=== PATIENT | female | born 1940 | race Caucasian/White ===

== ENCOUNTER → 2024-09-16 12:42 | Outpatient (CLI) | payer MEDICARE, SELFPAY ==
[2024-09-16 13:17] LABS: Add Manual Diff / Slide Review NO; Basophils Absolute Auto 100 /uL (0-100); Basophils Percent Auto 0.9 % (0-2); Eosinophils Absolute Auto 100 /uL (0-450); Eosinophils Percent Auto 1.9 % (2-4); Hematocrit 43.1 % (36-46); Hemoglobin 14.5 g/dL (12.0-16.0); Lymphocytes Absolute Auto 1700 /uL (1100-4500); Lymphocytes Percent Auto 25.2 % (25-40); Mean Corpuscular HGB Conc 33.7 % (30-36); Mean Corpuscular Hemoglobin 31.3 PG (26-34); Mean Corpuscular Volume 92.8 fL (80-100); Monocytes Absolute Auto 500 /uL (0-900); Monocytes Percent Auto 6.7 % (3-14); Neutrophils Absolute Auto 4500 /uL (1500-7000); Neutrophils Percent Auto 65.3 % (50-75); Platelet Count 202 X10^3/uL (150-400); Red Blood Cell Count 4.64 X10^6/uL (4.0-5.2); Red Cell Distribution Width 13.7 % (11.6-14.8); White Blood Cell Count 6.9 X10^3/uL (4.5-11.0)
[2024-09-16 13:45] LABS: BUN Creatinine Ratio 21.6 (6-22); Blood Urea Nitrogen 11 mg/dL (7-17); Calcium 9.5 mg/dL (8.4-10.2); Carbon Dioxide 30 mmol/L (22-32); Chloride 96 mmol/L (98-107); Estimated Glomerular Filt Rate > 60 mL/min (>60); Glucose 103 mg/dL (70-99); HEMOLYSIS < 15 (0-50); Sodium 134 mmol/L (137-145)
--- NOTE | 2024-09-16 14:41 | EKG_ITS ---
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
[2024-09-16 16:21] LABS: Appearance Urine UA CLEAR; Bilirubin Urine UA NEGATIVE (NEGATIVE); Color Urine UA YELLOW; Glucose Urine UA NEGATIVE (Negative); Ketones Urine UA TRACE (NEGATIVE); Leukocyte Esterase Urine UA NEGATIVE (NEGATIVE); Nitrite Urine UA NEGATIVE (Negative); Occult Blood Urine UA NEGATIVE (Negative); Protein Urine UA 1+ (Negative); Specific Gravity Urine UA 1.015 (1.000-1.035); Urobilinogen Urine UA 0.2 E.U./dL (0.2)
[2024-09-16 16:27] LABS: Bacteria Urine Moderate (10-30); RBC Urine None Seen (0-5/HPF); Squamous Epithelial Cell Urine 1-5 /HPF (0-5/HPF); Urine Volume 10mL (spun); WBC Urine 0-1/HPF (0-5/HPF)
[2024-09-16 16:28] LABS: Culture Indicated Urine Cult Not Indicated; Mucus Urine 2+ (Negative)
== END ==
PROVIDERS: PCP Registered Nurse; Referring Provider Orthopaedic Surgery; Visit Provider Orthopaedic Surgery
DX: Z01.818 Encounter for other preprocedural examination (principal); R73.9 Hyperglycemia, unspecified; Z01.812 Encounter for preprocedural laboratory examination; N39.0 Urinary tract infection, site not specified
CPT/HCPCS: 36415; 80048; 81001; 83036; 85025; 93005; 93010

== ENCOUNTER 2024-12-02 12:14 | Day surgery (SDC) | payer MEDICARE, SELFPAY ==
[2024-12-01 09:31] VITALS: BMI 21.7
[2024-12-02] VITALS (10 sets, daily range): BP systolic 127–185; BP diastolic 65–91; PULSE 61–65; RESP 14–20; TEMP 35.7–36.4; O2SAT 92–96; BMI 21.7
--- NOTE | 2024-12-02 06:00 | DI.RAD.S_ITS ---
PROCEDURE: XR HIP W PEL IF DONE RT 2V INDICATIONS: DILCIA TECHNIQUE: AP pelvis and lateral view of the hip acquired. COMPARISON: None. FINDINGS: Bones: Patient is status post right hip arthroplasty, with hardware components in expected positions. The hip joint appears congruent. The visualized bony structures appear intact. Soft tissues: Overlying postoperative changes are noted. No suspicious soft tissue densities. IMPRESSION: Expected post-operative appearance of a hip arthroplasty. Dictated by: Best Bates M.D. on 12/03/2024 at 15:14 Approved by: Best Bates M.D. on 12/03/2024 at 15:14
[2024-12-02] MEDS: LACTATED RINGERS 1,000 ML 42 ML IV (13:09)
[2024-12-02] MEDS: ACETAMINOPHEN 325 MG TABLET 975 MG PO (13:09)
[2024-12-02] MEDS: CELECOXIB 200 MG CAPSULE PO (13:10)
[2024-12-02] MEDS: VANCOMYCIN 1,000 MG in SODIUM CHLORIDE 0.9% 250 ML 250 MG IV (13:41)
--- NOTE | 2024-12-02 14:19 | PM.PREOP ---
Pre-operative Note Interval Note History & Physical reviewed/Exam performed by Physician: Yes Changes to H&P: No
--- NOTE | 2024-12-02 14:20 | P.OP_ITS ---
Operative Date/Time/Diagnoses Date of procedure: 12/02/24 Time of procedure: 03:30 Pre-op diagnosis: Right hip OA Post-op diagnosis: same Procedure & Clinicians Procedure: Right total hip arthroplasty anterior approach Same procedure(s) as scheduled: Yes Indications: The patient has had progressively worsening right hip pain with radiographic changes consistent with arthritis. Non-operative management has failed and the patient has requested total hip replacement. The risks, benefits and alternatives to surgery were discussed with the patient prior to proceeding. Risks discussed included, but were not limited to, failure to relieve pain, leg length discrepancy, dislocation, stiffness, infection, nerve damage, deep venous thrombosis, pulmonary embolism, stroke, coma, heart attack, permanent paralysis and , as well as the potential need for eventual revision of the prosthetic. Surgeon: Rowena Lee Market Research Executive: Chad Valdez Anesthesia Type: General and Spinal Operative Notes Findings: Severe right hip OA, , adequate bone, adequate stability Closure Type: primary Specimen(s): none sent Prosthetic devices, grafts, tissues, transplants, or devices: Lee and nephew R3 48, neutral poly liner, one 6.5 mm screw, polar stem size 0, 32 by -3, Applied: none Estimated Blood Loss (mL): 250 Blood products transfused: none Procedure in detail: The patient was brought to the operating room. Patient was carefully positioned in the supine position. Time-out was performed and antibiotics were given. Anesthesia was induced. She was positioned in the on the table in order to allow hyperextension of the hip. The right lower extremity was prepped and draped in a standard sterile fashion. An anterior right hip incision was made 1 fingerbreadth lateral to the anterior superior iliac spine and extended distally towards the greater trochanter. Dissection was carried out through skin and subcutaneous tissues. Superficial hemostasis was achieved. The fascia over the tensor fascia darien was defined and incised with a knife. Two Allis clamps were used to grasp the fascia. Tensor fascia darien was retracted laterally. A gelpi retractor was placed. Dissection was carried out down along the neck. The circumflex vessels were carefully identified and cauterized with the Aqua Mantis. A PA was used during the procedure was essential for intraoperative retraction and safe implantation of the components. There was good visualization of the femoral neck. A Cobra was placed superior to the neck and the gluteus fibers were carefully stripped from that superior aspect of the capsule. A 2nd retractor was placed along the inferior aspect of the neck. The rectus insertion along the capsule was partially released. A 3rd retractor that was then gently placed over the rim of the acetabulum under the rectus. Capsule was carefully incised and released from the intertrochanteric line circumferentially superior to the mid sagittal line and inferiorly to the mid sagittal line until the lesser trochanter was palpable. A tag stitch was placed both in the superior and inferior limb of the capsular insertion. Along the acetabulum capsule was also released up to the mid sagittal 12:00 position. A portion of the labrum was resected. A saw was used to perform an osteotomy at the level of the intertrochanteric line and the junction of the superior femoral neck leaving approximately 1 finger breath of residual inferior neck above the lesser trochanter. A 2nd cut was made along the femoral neck at the base of the head and a napkin ring of neck was removed. Corkscrew was placed in the femoral head and the head was removed without difficulty. Retractors were then repositioned around the acetabulum. Residual labrum was resected and additional osteophytes were removed. A reamer that was 4 mm below the templated size was placed by hand in the acetabulum and it was reamed to centralize the acetabulum. It was then reamed up to 2 under the templated size and fluoroscopy was brought in to confirm the position of the reaming and depth of reaming. I reamed 1 under the anticipated size. A trial cup was placed and noted that it was appropriately sized and fluoroscopy confirmed position and depth. The component was open and inserted without difficulty fluoroscopic imaging was used to confirm that the cup had been adequately seated and was well positioned. It was further stabilized with a single screw. Neutral poly liner was placed. The cup was tested and noted to be stable. Attention was then directed to the femur. The femur was gently hyperextended additional capsular release was performed as needed in order to allow adequate visualization of the proximal femur with elevation of the femur. Patient was placed in a hyperextended slightly adducted position with maximum external rotation. Box osteotome was used to check for any residual neck as well as sclerotic bone along the trochanter. Adena pepper was placed in the femur. Additional broaching was performed. Canal finder was used to determine the alignment of the canal and position. Size 1 broach was placed. The canal was then appropriately broached up to the templated size as long as there was adequate stability of the broach and serial advancement of the broach without excessive impingement. Specific attention was directed at avoiding varus attempting to direct the distal aspect of the broach more anteriorly and avoiding excessive anteversion. Trial reduction showed acceptable range of motion, good stability, no posterior impingement, pentecostalism of leg length and appropriate lateral shuck. I also hyperflexed the hip and checked that there was no impingement anteriorly and there was good stability with flexion, adduction and internal rotation. Marcaine and Exparel were injected. The stem was placed without difficulty. Repeat trial reduction and x-ray showed acceptable overall position, length, and no evidence of the femoral fracture. Final head was placed. Wound was meticulously irrigated with normal saline. The hip was reduced and additional Exparel and Marcaine were injected. The capsule was closed with interrupted nonabsorbable sutures. The fascia of the tensor was closed with interrupted and running Vicryl. No drain was placed. Any tensor fascia darien muscle that appeared to be contused or injured which was a minimal amount was carefully resected. Capsule around the tensor was injected with Exparel and Marcaine. The skin was closed with barbed stitches for the subcutaneous tissue and skin. We also used surgical glue. The wound was dressed sterilely. Brief Betadine soak was also used and was meticulously irrigated with normal saline. Patient was transferred to recovery room in satisfactory condition. Complications: none Post-operative Condition: stable Disposition: same day surgery Plan for aftercare: The patient will be maintained on a standard total hip replacement protocol with weight bearing as tolerated and anterior hip precautions. The patient will receive Aspirin and sequential compression devices for DVT prophylaxis. The patient will be discharged home when safe for the home environment.
[2024-12-02] MEDS: TRANEXAMIC ACID 1,000 MG VIAL 1000 MG INJ ×2 (15:30→17:06)
[2024-12-02] MEDS: CEFAZOLIN 2 GM/100 ML PREMIX 100 ML IV (15:35)
--- NOTE | 2024-12-02 15:51 | SUR.OPER ---
Patient supine on padded [place] table, one arm on padded arm board at <90, other arm padded and secured with tape across patient's chest, both legs secured in padded traction boots and positioned per surgeon, padded post at patient's groin, pressure points checked and padded. Dr. Lee in room at time of positioning with PA and assisting. All pressure points padded and final position approved by surgeon
[2024-12-02] MEDS: BUPIVACAINE LIPOSOME 266 MG/20 ML VIAL INJ (16:08)
[2024-12-02] MEDS: BUPIVACAINE 0.25% W/ EPI 30 ML VIAL 60 ML INJ (16:08)
[2024-12-02] MEDS: DOCUSATE 100 MG CAPSULE PO (21:31)
[2024-12-02] MEDS: ASPIRIN EC 81 MG TABLET PO (21:31)
[2024-12-02] MEDS: ACETAMINOPHEN 325 MG TABLET 650 MG PO (21:31)
[2024-12-02] MEDS: LACTATED RINGERS 1,000 ML 100 ML IV (21:34)
[2024-12-03] MEDS: CEFAZOLIN 2 GM/100 ML PREMIX 100 ML IV ×2 (00:04→06:16)
[2024-12-03] MEDS: IBUPROFEN 400 MG TABLET PO (00:09)
[2024-12-03] MEDS: ACETAMINOPHEN 325 MG TABLET 650 MG PO ×2 (01:17→06:15)
[2024-12-03 05:20] VITALS: BP 145/73; PULSE 77; RESP 16; TEMP 36.4; O2SAT 100
[2024-12-03 05:54] LABS: Hematocrit 36.2 % (36-46); Hemoglobin 12.3 g/dL (12.0-16.0)
--- NOTE | 2024-12-03 07:57 | PM.DS.1 ---
History of Present Illness History of Present Illness Date Patient Seen: 12/03/24 Time Patient Seen: 07:57 Chief complaint: Right DILCIA anterior *OPB* Narrative: The patient has had progressively worsening right hip pain with radiographic changes consistent with arthritis. Non-operative management has failed and the patient has requested total hip replacement. The risks, benefits and alternatives to surgery were discussed with the patient prior to proceeding. Risks discussed included, but were not limited to, failure to relieve pain, leg length discrepancy, dislocation, stiffness, infection, nerve damage, deep venous thrombosis, pulmonary embolism, stroke, coma, heart attack, permanent paralysis and , as well as the potential need for eventual revision of the prosthetic. Discharge Providers Provider Discharge Date: 12/03/24 Primary care physician: Addis Magallon, MSN, RN Consults: 12/02/24 06:00 Consult to Anesthesiology Routine Comment: Consulting Provider: Anesthesiologist Reason for consultation: Regional block for post operative pain control Has provider been notified: No 12/02/24 18:32 Consult to Discharge Planning Routine Comment: Consult to Occupational Therapy Evaluate & Treat Comment: Physician Instructions: Evaluate and treat Consult to Physical Therapy Evaluate & Treat Comment: Physician Instructions: post op DILCIA protocol Discharge provider: Chad Valdez PA-C Summary Hospital Course Discharge Diagnosis: Right hip OA Hospital Course: Procedure: Right total hip arthroplasty anterior approach Same procedure(s) as scheduled: Yes Surgeon: Rowena Lee Gas Technician: Chad Valdez Anesthesia Type: General and Spinal Operative Notes Findings: Severe right hip OA, , adequate bone, adequate stability Closure Type: primary Specimen(s): none sent Prosthetic devices, grafts, tissues, transplants, or devices: Lee and nephew R3 48, neutral poly liner, one 6.5 mm screw, polar stem size 0, 32 by -3, Applied: none Estimated Blood Loss (mL): 250 Blood products transfused: none Status at Discharge Cognitive/behavioral status at discharge: oriented Functional status at discharge: uses cane/walker Overall status at discharge: patient is back to baseline Time Spent with Patient Time spent: Less than 30 minutes Exam Vital Signs (past 8 hours): - 12/03/24 05:20 Temperature 97.5 F L Pulse Rate 77 Respiratory Rate 16 Blood Pressure 145/73 H Pulse Oximetry 100 Oxygen Flow Rate 0 Oxygen Delivery Method Room Air Oxygen Flow Rate 0 Narrative Exam Narrative: Patient's pain is controlled with oral medication. ?Pain is localized to surgical site. ?Patient declines any new numbness or tingling at the surgical extremity. ?Patient denies any shortness of breath, dizziness, light-headedness, nausea, vomiting, fever or chills. 5/5 strength in hip flexors, quadriceps, hamstrings, DF, PF, EHL bilaterally. Sensation to light touch intact throughout BLE. Calves soft, compressible, nontender. Dressing placed intraoperatively CDI. Resp Effort & Inspection: normal respiratory effort and able to speak in complete sentences Objective Labs 12/03/24 04:49 Labs: Laboratory Results - last 24 hr 12/03/24 04:49 Hgb 12.3 Hct 36.2 PFSH Medical History (Updated 11/24/24 @ 14:20 by Ramya Lanier RN) History of COVID-19 (2020) Easy bruisability Osteoarthritis Rectocele Cystocele SVT (supraventricular tachycardia) Myocardial infarction (2013) HLD (hyperlipidemia) HTN (hypertension) Surgical History (Updated 11/24/24 @ 14:16 by Ramya Lanier RN) History of gynecologic surgery (2004) History of lumpectomy of right breast (~1987) Hx of synovectomy (2004) Hx of arthroscopy of right knee (2022) History of hysterectomy (09/1993) H/O cardiac radiofrequency ablation (2014) History of heart artery stent (2013) History of bilateral cataract extraction (2018) Social History household members: spouse Smoking Status: Former smoker Discharge Assessment & Plan Assessment and Plan Assessment: Right total hip arthroplasty anterior approach Plan of Treatment: Discharge to home. ? Anterior Hip Pre-cautions. Ambulate and weight bear as tolerated with assistive devices. ? Aspirin 81 mg twice a day for 6 weeks for DVT prevention. ? Baseline pain relief with acetaminophen 500mg every 4 hours as needed and ibuprofen 400 mg every 4 hours as needed. ?Patient has been prescribed oxycodone 5 mg every 4 ?hours as needed for breakthrough pain. ? Initiate physical therapy in the next 5-10 days. ? Keep dressing clean and dry. Keep dressing on until first office visit. If dressing becomes dirty or disrupted, replace with appropriate sized dressing. Follow up in clinic in 2 weeks for wound check. Contact clinic if there are any questions or concerns. Discharge Plan Discharge Plan Patient Disposition: Home Provider Discharge Comment: DC Pending PT approval Discharge orders & Medications Discharge Orders: Discharge (Order); Ordered 12/03/24 Ordered By: Chad Valdez Prescriptions: Continued atorvastatin 80 mg tablet 80 mg PO DAILY metoprolol succinate 50 mg tablet extended release 24 hr 50 mg PO DAILY amlodipine 5 mg tablet 5 mg PO DAILY benazepril 40 mg tablet 40 mg PO DAILY Changed aspirin 81 mg capsule 81 mg PO BID Qty: 90 0RF Follow up/Referrals: Addis Magallon, MSN, RN [Primary Care Provider, Nursing] Diet/Activity/Treatments Diet: Diet as Tolerated Activity: Ambulate multiple times a day. Use a cane or walker as needed. Full weight on leg. Cold/Heat Therapy: Use ice multiple times a day. Skin/Wound/Dressing Care Skin care: Leave dressing on. Okay to shower Report to your healthcare provider any signs of infection, such as:: chills, fever, night sweats, unusual drainage and unusual redness Dressing: May shower. Leave dressing in place until follow up in office. No bathing or otherwise soaking incision. Call the office if the dressing becomes saturated inside. Visit Report/Discharge Packet Instructions: DI for Hip Replacement Stand Alone Forms: Patient Portal/API, Surgery Discharge Print Language: B[place]ian Discharge Data Primary Care Provider: Addis Magallon Attending Provider: Rowena Lee
[2024-12-03 09:00] VITALS: BP 147/74; PULSE 72; RESP 16; TEMP 36.6; O2SAT 96
[2024-12-03 10:04] VITALS: BP 145/73; PULSE 77
[2024-12-03] MEDS: AMLODIPINE 5 MG TABLET PO (10:04)
[2024-12-03] MEDS: ASPIRIN EC 81 MG TABLET PO (10:04)
[2024-12-03] MEDS: METOPROLOL ER 50 MG TABLET PO (10:04)
--- NOTE | 2024-12-03 10:25 | PT.IIE ---
Current Diagnoses Unilateral primary osteoarthritis, right hip (12/02/24) Surgery Performed Operation Date: 12/02/24 13:45 Actual Procedures p Total Hip Arthroplasty/Anterior Approach(Right) - Rowena Lee MD Surgical History (Last Updated 11/24/24 @ 14:16 by Ramya Lanier RN) H/O cardiac radiofrequency ablation (2014) History of bilateral cataract extraction (2018) History of gynecologic surgery (2004) History of heart artery stent (2013) History of hysterectomy (09/1993) History of lumpectomy of right breast (~1987) Hx of arthroscopy of right knee (2022) Hx of synovectomy (2004) Medical History (Last Updated 11/24/24 @ 14:20 by Ramya Lanier RN) Cystocele Easy bruisability History of COVID-19 (2020) HLD (hyperlipidemia) HTN (hypertension) Myocardial infarction (2013) Osteoarthritis Rectocele SVT (supraventricular tachycardia) Physical Therapy Inpatient Evaluation/Re-Eval M1 PT/OT-IP Prior Functional Status Start: 12/03/24 12:12 Freq: NEEDED Status: Discharge Protocol: Document 12/03/24 11:10 [facility] (Rec: 12/03/24 12:26 [facility] Desktop) Medical Review Prior Functional Status Communication I Activities of Daily Pt able to do ADL and IADL need with increased time and Living and IADL's pain. Social History Household Members spouse Living Arrangements House Number of Floors ( One Floor Floors) Number of Stairs To 5 steps with bilateral rails from the garage. Enter/Railing? Home Environment High Toilet,Walk in Shower Home Equipment Front Wheel Walker,Hand Held Shower,Grab Bars In Shower M1 PT/OT-IP Prior Functional Status Start: 12/03/24 13:38 Freq: NEEDED Status: Active Protocol: Document 12/03/24 10:25 AB (Rec: 12/03/24 13:51 AB [id number]) Medical Review Prior Functional Status Medical History Yes Reviewed Communication able to make needs known Mobility and Gait pt stated that she was independent with all mobilities and ambulation without AD Activities of Daily per OT note: Pt able to do ADL and IADL need with Living and IADL's increased time and pain. Social History Household Members spouse Living Arrangements House Number of Floors ( One Floor Floors) Number of Stairs To 5 steps with bilateral rails from the garage. Enter/Railing? Home Environment High Toilet,Walk in Shower Home Equipment Front Wheel Walker,Hand Held Shower,Grab Bars Near Toilet,Grab Bars In Shower M2 PT-IP Current Condition Start: 12/03/24 13:38 Freq: NEEDED Status: Active Protocol: Document 12/03/24 10:25 AB (Rec: 12/03/24 13:51 AB [id number]) Physical Therapy Current Condition Current Condition Evaluation Date 12/03/24 Treatment Diagnosis s/p R DILCIA anterior; difficulty in walking Onset Date 12/02/24 M3 PT-IP Subjective Start: 12/03/24 13:38 Freq: NEEDED Status: Active Protocol: Document 12/03/24 10:25 AB (Rec: 12/03/24 13:51 AB [id number]) Subjective Physical Therapy Visit Type Type Initial Evaluation Visit Start Time 10:25 Visit Stop Time 11:35 Notes pt seen for split visits: 1025 am to 1035 and 1105 to 1135 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 Physical Therapy Visit Comments Patient Comments agreeable to do PT Therapy Pain Assessment Pain When Pain Assessed At Rest M4 PT-IP Mobility and Gait Start: 12/03/24 13:38 Freq: NEEDED Status: Active Protocol: Document 12/03/24 10:25 AB (Rec: 12/03/24 13:51 AB [id number]) PT-Bed Mobility Assessment Supine to Sit Supine to Sit Standby Assistance Sit to Supine Sit to Supine Independent PT-Transfer Assessment Sit to and From Stand Sit to and from Standby Assistance,1 Person Assistance,Use of Upper Stand Extremities Equipment Transfer Assistive Gait Belt,Front Wheeled Walker Device Orthotic/Prosthetic No Devices or Brace: Transfers Transfer Destination Bed,Chair Transfer Technique ambulated Transfer Ability Level of Assist Standby Assistance,1 Person Assistance,Use of Upper Extremities Comments Mobility Comments pt sitting on the chair. obtained PLOF and home set up. checked back on pt after a few minutes for mobility. sit to stand from chair SBA and ambulated in room using FWW SBA. pt sat on EOB and completed sit<>supine SBA. sit to stand from EOB SBA and ambulated in the hallway using FWW ~ 200ft SBA. completed up/down steps using B rails min A and cues. pt stated that her L knee is bone on bone and is weaker that RLE even though RLE just had surgery. pt with difficulty completing steps leading with LLE. pt then completed stairs leading with RLE and needed min A. pt stated that spouse will be able to assist her. declined caregiver training. pt ambulated ~ 75ft using FWW SBA. assisted back to her room. ambulated from w/c to chair using FWW SBA. positioned pt on the chair. call light and table placed within reach. Gait Assessment Gait Gait Assistance Standby Assistance Required: Distance (Feet) 200 Able to Maintain Yes Weight Bearing Status During Gait Assistive Devices Assistive Device Gait Belt,Front Wheeled Walker Orthotic/Prosthetic No Devices or Brace: Gait Deviations General Gait Pattern Antalgic,Decreased Stride Length,Decreased Feet Clearance Factors Limiting Gait Function Factors Limiting Decreased Activity Tolerance,Decreased Strength,Limited Gait Function Range of Motion,Pain,Poor Balance,Poor Safety Awareness Stair Climbing Assessment Evaluation Level of Assist On Contact Guard Assistance,Minimal Assistance Stairs Devices Stair Climbing Left Railing,Right Railing Assistive Devices Technique/Endurance Stair Climbing Ascend and Descend Direction Stair Climbing Step to Step Technique Number of Steps 3 Climbed Query Text: Stair Climbing Set # 1 Repetitions (reps) PT-Balance Assessment Sitting Balance and Reactions Static Sitting Normal Balance Ability Dynamic Sitting Good Balance Ability Standing Balance and Reactions Static Standing Good Balance Ability Dynamic Standing Fair Balance Ability Device Used FWW M5 PT-IP Objective Assessments Start: 12/03/24 13:38 Freq: NEEDED Status: Active Protocol: Document 12/03/24 10:25 AB (Rec: 12/03/24 13:51 [id number]) Orientation Orientation/Cognition Level of Alertness Alert Orientation Name,Place,Situation Language Function No Deficits Noted Ability Safety Awareness Understands Safety Issues Memory Description No Deficits Noted Strength Lower Extremity Strength Assessment Right Impaired Hip 3+/5 Knee 4/5 Coordination Assessment Gross Coordination Gross Coordination WNL Sensation Assessment Sensation Gross Sensation WNL M6 PT-IP Treatment Start: 12/03/24 13:38 Freq: NEEDED Status: Active Protocol: Document 12/03/24 10:25 AB (Rec: 12/03/24 13:51 AB [id number]) Physical Therapy Treatment Education Education Provided Precautions,Weight Bearing Status,Safety M7 PT-IP Assessment and Plan Start: 12/03/24 13:38 Freq: NEEDED Status: Active Protocol: Document 12/03/24 10:25 AB (Rec: 12/03/24 13:51 AB [id number]) PT Summary Assessment and Plan Potential Rehabilitation Fair Potential Status of Condition Stable at Evaluation Summary Impairments Pain,ROM,Strength,Balance,Coordination,Sensation,Tone, Cognition,Bed Mobility,Transfers,Gait,Activity Tolerance Assessment Summary pt is an 85 y/o F s/p R DILCIA anterior approach POD 1. pt with R hip anterior precautions and is WBAT. pt requiring SBA with transfers and ambulation using FWW, min A for stair climbing but stated that spouse will be able to assist her. pt has outpt PT set up. Goals Bed Mobility Goal Independent Transfer Goal Independent,Front Wheeled Walker Gait Goal Independent,Front Wheel Walker Gait Distance 300 Other Goals up/down 5 steps B rails SBA Days to Meet Goals 5 Frequency of Treatment Frequency Of Twice a Day Treatment Treatment Plan Physical Therapy Bed Mobility Training,Transfer Training,Gait Training, Treatment Plan Therapeutic Exercise,Balance Retraining,Post Op Education,Discharge Planning,Hot or Cold Pack, Neuromuscular Re-ed,Coordination Retraining,Manual Therapy Precautions Anterior Hip No Hip Extension,No Hip External Rotation Precautions Weight Bearing Status Weight Bearing Weight Bear as Tolerated Status Allowed Weight RLE WBAT Bearing Amount ( enter % or #) (%) Recommendations To Nursing Amount of Assist 1 Person Assist Needed Discharge Recommendations PT Discharge Home with Assistance,Outpatient PT Recommendations Transportation Needs Private Vehicle at Discharge - PT assist 1
--- NOTE | 2024-12-03 10:39 | OT.IP.EVAL ---
Current Diagnoses Unilateral primary osteoarthritis, right hip (12/02/24) Surgery Performed Operation Date: 12/02/24 13:45 Actual Procedures p Total Hip Arthroplasty/Anterior Approach(Right) - Rowena Lee MD Past Medical History (Last Updated 11/24/24 @ 14:20 by Ramya Lanier, RN) Cystocele Easy bruisability History of COVID-19 (2020) HLD (hyperlipidemia) HTN (hypertension) Myocardial infarction (2013) Osteoarthritis Rectocele SVT (supraventricular tachycardia) Surgical History (Last Updated 11/24/24 @ 14:16 by Ramya Lanier RN) H/O cardiac radiofrequency ablation (2014) History of bilateral cataract extraction (2018) History of gynecologic surgery (2004) History of heart artery stent (2013) History of hysterectomy (09/1993) History of lumpectomy of right breast (~1987) Hx of arthroscopy of right knee (2022) Hx of synovectomy (2004) Occupational Therapy Inpatient Evaluation/Re-Eval M1 PT/OT-IP Prior Functional Status Start: 12/03/24 12:12 Freq: NEEDED Status: Active Protocol: Document 12/03/24 11:10 [facility] (Rec: 12/03/24 12:26 [facility] Desktop) Medical Review Prior Functional Status Communication I Activities of Daily Pt able to do ADL and IADL need with increased time and Living and IADL's pain. Social History Household Members spouse Living Arrangements House Number of Floors ( One Floor Floors) Number of Stairs To 5 steps with bilateral rails from the garage. Enter/Railing? Home Environment High Toilet,Walk in Shower Home Equipment Front Wheel Walker,Hand Held Shower,Grab Bars In Shower M2 OT-IP Current Condition Start: 12/03/24 12:12 Freq: Status: Active Protocol: Document 12/03/24 11:10 [facility] (Rec: 12/03/24 12:26 [facility] Desktop) Occupational Therapy Current Condition Current Condition Evaluation Date 12/03/24 Treatment Diagnosis S/P R DILCIA anterior Diagnosis Onset Date 12/02/24 Post Operative Precautions Anterior Hip No Hip Extension,No Hip External Rotation Precautions Weight Bearing Status Weight Bearing Weight Bear as Tolerated Status M3 OT- IP Subjective and Pain Start: 12/03/24 12:12 Freq: Status: Active Protocol: Document 12/03/24 11:10 [facility] (Rec: 12/03/24 12:26 [facility] Desktop) OT- Subjective Occupational Therapy Visit Type Type Initial Evaluation Visit Start Time 10:39 Visit Stop Time 11:10 Occupational Therapy Visit Comments Patient Comments Pt agreed to get up to get dressed. Patient/Caregiver TO go home. Goals OT Pain Assessment Pain When Pain Assessed At Rest Pain Present Pain Present Denied Pain M4 OT- IP ADL's Start: 12/03/24 12:12 Freq: Status: Active Protocol: Document 12/03/24 11:10 [facility] (Rec: 12/03/24 12:26 [facility] Desktop) OT PJK-[id number]-Lvrcrli General Evaluation Self-Feeding Ability Independent Areas Needing Opening Containers Assistance OT ADL-Grooming General Evaluation Grooming Ability Standby Assistance Areas Needing Retrieving/Set-up of Grooming Items Assistance Comments OT Grooming Comments Able to do while standing with the FWW. OT ADL-Oral Care General Eval Oral Care Ability Independent Areas of Assistance Retrieving/Set-Up of Items OT ADL-Dressing General Eval Upper Body Dressing Independent Ability Lower Body Dressing Minimal Assistance Ability Areas Needing Shoes Assistance Comments OT Dressing Comments Able to show pt LB dressing equipment. Spoke of dressing the RLE first and take out last. OT ADL-Toileting General Evaluation Toileting Ability Contact Guard Assistance Areas Needing Manage Clothing Assistance Comments OT Toileting BSC is suggested. Comments OT ADL-Bathing Comments OT Bathing Comments Pt will benefit from a shower chair and assist. Spoke of care for the dressing while showering. M5 OT- IP IADL's Start: 12/03/24 12:12 Freq: Status: Active Protocol: Document 12/03/24 11:10 [facility] (Rec: 12/03/24 12:26 [facility] Desktop) OT-Instrumental Activities of Daily Living Home Safety Awareness Awareness of Need Good Awareness for Assistance at Home Ability to Problem Able to Problem Solve Solve Emergency Situations Meal Preparation Meal Preparation Caregiver Provides Assist Electronic Tech Electronic Tech Caregiver Provides Assist M6 OT- IP Functional Cognition Start: 12/03/24 12:12 Freq: Status: Active Protocol: Document 12/03/24 11:10 [facility] (Rec: 12/03/24 12:26 [facility] Desktop) Cognitive Factors Limiting Selfcare Function Cognitive Ability Level of Alertness Alert Patient Orientation Name,Age,Birthday,Month,Date,Year,Day of Week,Place, Situation Attention Span Capable of Focused Attention,Capable of Sustained Ability Attention Ability to Follow Able to Follow One Step Commands Commands Cognitive Comments Cognitive Assessment Pt able to follow her hip precautions for ADL and Comments mobility needs. OT- Vision and Hearing OT- Hearing Assessment OT- Hearing WFL Assessment OT- Vision Assessment Visual Acuity Glasses For Reading Visual Attentiveness WFL Occular Pursuits WFL M7 OT- IP Mobility and Balance Start: 12/03/24 12:12 Freq: Status: Active Protocol: Document 12/03/24 11:10 [facility] (Rec: 12/03/24 12:26 [facility] Desktop) OT-Transfer Assessment Sit to and From Stand Sit to and from Standby Assistance Stand Transfers Transfer Ability Standby Assistance Technique Transfer Destination Chair,Toilet Transfer Technique Stand Step Pivot Devices Transfer Assistive Gait Belt,Front Wheeled Walker Devices Comments Mobility Comments SBA to stand and able to walk to the toilet, sink , and back to the recliner with the FWW. Pt's FWW legs on the back tends to stick versus slide and suggested pt to get another fww or put tennis balls on the back. Pt' s fww is a high fall risk at this time. OT- Balance Assessment Sitting Balance and Reactions Static Sitting Normal Balance Ability Dynamic Sitting Normal Balance Ability Standing Balance and Reactions Static Standing Good Balance Ability Dynamic Standing Good Balance Ability M8 OT- IP Objective Assessments Start: 12/03/24 12:12 Freq: Status: Active Protocol: Document 12/03/24 11:10 [facility] (Rec: 12/03/24 12:26 [facility] Desktop) OT Gross Range of Motion Upper Extremity Range of Motion Assessment Within Functional Limits M9 OT- IP Assessment and Plan Start: 12/03/24 12:12 Freq: Status: Active Protocol: Document 12/03/24 11:10 [facility] (Rec: 12/03/24 12:26 [facility] Desktop) OT Summary Assessment and Plan Potential Rehabilitation Excellent Potential Analytic Complexity Low at Evaluation Summary OT Impairments Balance,Functional Mobility,Dressing,Toileting,Bathing, Toilet Transfers,Shower Transfers Progress Towards Progressing Toward Goals Goals Assessment Summary Pt low complexity and main barriers are pain ,steps, and safety of her current FWW- suggested pt to get another FWW as the back legs on her FWW tends to stick versus glide. Pt to go home with her spouse to assist and attend outpt PT. In addition to ADL , able to go over bed mobility and car transfers needs. Goals Self-Feeding Goal Independent Grooming Goal Independent Dressing Goal Independent Toileting Goal Independent Bathing Goal Standby Assistance Toilet Transfer Goal Independent Shower Transfer Goal Standby Assistance Days to Meet Goals 5 Frequency of Treatment Other frequency 5x/week Treatment Plan OT Treatment Plan ADL Training,Functional Mobility,Patient/Family Education,Discharge Planning Discharge Recommendations OT Discharge Home with Assistance,Outpatient PT Recommendations Home Equipment Needs BSC, shower chair Transportation Needs Private Vehicle at Discharge
[2024-12-03 11:40] VITALS: BP 140/70
--- NOTE | 2024-12-03 12:33 | PC.NURSE ---
Pt denies discomfort, Passed PT & Ot, Discharge orders received. SL D/C intact. Home instructions given w/understanding Awaiting transportation
--- NOTE | 2024-12-03 13:40 | CM.DANOTE ---
B DCP Assessment note pt is a 85yo F POD1 right hip repair with Dr. Lee PCP Addis Magallon Payer Medicare and [employer] ASSOCIATE MUSIC PROFESSOR reviewed EMR per chart review, pt lives indep with spouse in [place]. OT=home with assistance. PT eval rec pending. ASSOCIATE MUSIC PROFESSOR attempted to meet with pt, pt working with PT. moving with FWW in room. pt then left prior to being seen by this ASSOCIATE MUSIC PROFESSOR. per OT note, has necessary equipment for home but could benefit from bath bench, pt/spouse will get necessary DME for home. P: home today with spouse and OP f/u already set up. no further CM needs at this time, will continue to follow as needed GRICEL Wilder Discharge Planning/Care Management CM Discharge Assessment Start: 12/02/24 12:33 Freq: Status: Discharge Protocol: Document 12/03/24 13:38 [facility] (Rec: 12/03/24 13:40 [facility] [id number]) Discharge Planning Assessment Assigned Discharge GRICEL Nichols Application Support Technician DPOA/Assigned [place], spouse Designee Name Contact Information [phone] Advance Directives? Yes Advance Directives No on File History Provided By Patient Prior Living House Arrangements Household Members spouse Independent with ADL Yes 's Is patient alert and Yes oriented? DME Already Rented / FWW / Walker Owned Discharge Plan Home Referrals Initiated None needed Review Status In Process Please Provide Date 12/03/24 Initial DC Assessment Was Performed Next Review Type Continued Stay Review Pre-Anesthesia Assessment Start: 11/24/24 13:46 Freq: Status: Discharge Protocol: Document 12/01/24 09:31 [facility] (Rec: 11/24/24 14:29 [facility] [id number]) Pre-Anesthesia Assessment PAC Comment Phone assess 11/24/24 Patient Information Phone Assessment Reviewed Via Assessment Completed Patient With Diagnostic Results BMP/CMP,CBC,EKG Comment Labs/EKG @ [facility] 09/16/24 Primary Care Addis Magallon Provider Seen Specialist in Yes Last 12 Months Specialist Seen Private Eye,Pick Out Hand,Opthamologist/Business Test Analyst, Orthopedist Primary Language Hebrew Horse Riding Coach Or Instructor Required No Height 154.94 cm Weight 52.163 kg Body Mass Index (BMI 21.7 ) Hearing Ability Normal Visual Assist Glasses Dentition Type Teeth, Natural Present Barriers to Learning None Hx Anesthesia No Reactions Hx Family Anesthesia No Reaction Hx Malignant No Hyperthermia Hx Blood No Transfusions Anesthesia Review No Requested Front Elevator Operator No Alcohol intake 1-2 drinks per day frequency Smoking Status Former smoker how long ago did 2004 patient quit smoking Substance Use Type [ does not use #R] Musculoskeletal Abnormal Gait,Difficulty Walking,Joint Pain Symptoms History of Falling ( No Recent or History of ) Patient is No completely paralyzed or completely immobile Mental Status Oriented to own ability Is patient on oxygen No ? Does patient have No ALBARRAN/SOB Hx Sleep Apnea No Currently Taking a Yes: Metoprolol Beta Luke Can You Climb a No Flight of Stairs Without SOB Hx Chest Pain No Hx SOB No Hx Syncope or No Dizziness Anti-Coagulant Yes: ASA-81mg pt will confirm with Cardiology if to Therapy continue or hold Has a Private Eye Yes: Visit 10/01/[address] Montano @ [facility] Cardiac Testing Yes: Stress test 10/31/24 Hx Pacemaker/ICD No Pacemaker Rep No Required? Comment Cardiac records scanned and in surgery folder Dysphagia No Gastrointestinal None Symptoms Chronic UTI No Urinary Catheter No Present Hx Urinary Self No Catheterization Diabetes No HgbA1C 5.0 Date 09/16/24 Patient No Lactating No Hx Drug Resistant No Organism Presence of External Yes or Internal Medical Devices Marital Status Lives With spouse Current Living House Arrangements Number of Floors ( One Floor Floors) Number of Stairs To 3 steps Enter/Railing? Support System Spouse Does the Patient Yes Have Assistance After Surgery Patient Discharge Return Home Plan Description Comment Pt advised overnight length of stay per surgeon Feels Safe in Yes Current Environment Been Physically Hurt No or Threatened By a Person in Current Environment Do you have thoughts None of harming yourself or others? Are you currently No considering suicide? Do you have a plan No Plan to hurt yourself or others? Do You Have Any No Spiritual Beliefs That May Affect Your HC Choices? Do You Have Any No Cultural Practices That May Affect Your HC Choices? Comment Anabaptist Who Can We Speak to Family, friends About Patient's Care Identifying Code for Declines to issue Release of Patient Information Health Care Proxy/ [place] () Next of Kin Health Care Proxy [phone] Phone Number Emergency Contact [place] () Name Emergency Contact [phone] Phone Number Advance Directives? Yes Advance Directives No on File Requested Patient Yes Bring Advanced Directives DOS Power of Hold Worker Yes Power of Hold Worker [place] () Name Power of Hold Worker [phone] Phone Number PAC Instructions Assistance for 24 hours post-op,Do not shave/clip surgical site,Durable medical equipment,Medications to take/avoid,Nasal antibiotic,No ETOH/petroleum product on skin DOS,NPO,Post-op transportation,Pre-surgical wash,Sturdy shoes/comfortable clothes,Do not bring valuables and remove jewelry
== END 2024-12-03 13:19 | disposition home or self-care (01) ==
LOC: OR 12:20 → AC 12:21
PROVIDERS: PCP Registered Nurse; Referring Provider Orthopaedic Surgery; Visit Provider Orthopaedic Surgery
PROC: (CPT 27130; principal; 2024-12-02 13:45)
DX: M16.11 Unilateral primary osteoarthritis, right hip (principal); Z79.82 Long term (current) use of aspirin; I10 Essential (primary) hypertension; Z95.818 Presence of other cardiac implants and grafts; M25.751 Osteophyte, right hip
CPT/HCPCS: 27130; 36415; 73502; 85014; 85018; 97116; 97161; 97165; 97530; 97535; C1776; C1713; J0666; J0690; J1100; J2405; J2704; J3010